=== PATIENT | male | born 1960 | race Caucasian/White ===

== ENCOUNTER 2017-08-12 05:51 | Emergency (ER) | payer OTHER ==
[~2017-08-12] VITALS: Ht 193 cm; Wt 125.0 kg
[2017-08-12] MEDS ORDERED: DIAZEPAM 5 MG TABLET ONE ×2 (06:26→06:27)
[2017-08-12] MEDS ORDERED: OXYcodone/APAP 10/325MG TABLET ONE (06:27)
[2017-08-12] MEDS ORDERED: DIAZEPAM 5 MG TABLET PO ONE (06:30)
[2017-08-12] MEDS ORDERED: OXYcodone/APAP 10/325MG TABLET PO ONE (06:30)
[2017-08-12 07:49] VITALS: BP 135/75
== END 2017-08-12 07:51 | disposition home or self-care (01) ==
LOC: ED 07:45
DX: S76.911A Strain of unspecified muscles, fascia and tendons at thigh level, right thigh, initial encounter (principal); M16.11 Unilateral primary osteoarthritis, right hip; X58.XXXA Exposure to other specified factors, initial encounter; Y93.89 Activity, other specified; Y92.89 Other specified places as the place of occurrence of the external cause; Y99.8 Other external cause status
CPT/HCPCS: 99284